=== PATIENT | male | born 1990 | race Caucasian/White ===

== ENCOUNTER 2018-04-13 10:11 | Emergency (ER) | payer BC, SELFPAY ==
[2018-04-13 11:29] LABS: #Basophils 0.1 thou/uL (0.0-0.2); #Eosinphils 0.1 thou/uL (0.0-0.7); #Lymphocytes 2.2 thou/uL (1.20-3.40); #Monocytes 0.5 thou/uL (0.11-0.59); #Neutrophils 6.4 thou/uL (1.40-6.50); %Basophils 0.8 % (0.0-1.0); %Eosinophils 1.5 % (0.0-10.0); %Lymphocytes 23.4 % (21.0-51.0); %Monocytes 5.4 % (0.0-10.0); %Neutrophils 68.9 % (42.0-75.0); Hemoglobin 16.3 g/dL (14.0-18.0); Mean Corpuscular HGB CONC 33.1 g/dL (32.0-36.0); Mean Corpuscular Hemoglobin 27.6 pg (27.0-31.0); Mean Corpuscular Volume 83.3 fL (78.0-98.0); Mean Platelet Volume 6.6 fL (7.4-10.4); Platelet Count 210 thou/uL (130-400); RBC Distribution Width 10.9 % (11.5-14.5); White Blood Cell (WBC) Count 9.3 thou/uL (4.8-10.8)
[2018-04-13 11:39] LABS: ALT (SGPT) 27 U/L (8-55); AST (SGOT) 18 U/L (5-34); Albumin 4.7 g/dL (3.5-5.0); Alkaline Phosphatase 73 U/L (40-150); Anion Gap 14 mmol/L (10-20); BUN (Urea Nitrogen) 17 mg/dL (8.9-20.6); Bilirubin, Total 0.3 mg/dL (0.2-1.2); Calc. Creatinine Clearance 0 mL/min (70-130); Calcium 10.1 mg/dL (7.8-10.44); Carbon Dioxide 21 mmol/L (22-29); Chloride 109 mmol/L (98-107); Estimated GFR-MDRD Greater than 90; Globulin 2.8 g/dL (2.4-3.5); Glucose 95 mg/dL (70-105); Potassium 3.7 mmol/L (3.5-5.1); Protein, Total 7.5 g/dL (6.0-8.3); Sodium 140 mmol/L (136-145)
[2018-04-13 11:41] LABS: CKMB 1.1 ng/mL (0-6.6); Troponin I Less than 0.010 ng/mL (< 0.028)
[2018-04-13] MEDS ORDERED: Meclizine HCl 25 MG TAB ONE (12:00)
[2018-04-13] MEDS ORDERED: Ondansetron HCl/PF 4 MG/2 ML Vial ONE (12:00)
--- NOTE | 2018-04-13 12:20 | CT ---
HEAD CT NONCONTRAST: Date: 04/13/18 CLINICAL HISTORY: Acute onset dizziness. Recent head trauma. FINDINGS: Ventricular system is normal in size. There is no acute intracranial hemorrhage, mass effect, or midl ine shift. Calvarium is intact without pneumocephalus or acute fluid level of the visualized paranasa l sinuses. IMPRESSION: No acute intracranial abnormality. POS: [facility] [place]
== END 2018-04-13 14:10 | disposition home or self-care (01) ==
LOC: SCSER 10:11
DX: R42 Dizziness and giddiness (principal); F17.210 Nicotine dependence, cigarettes, uncomplicated
CPT/HCPCS: 70450; 80053; 82553; 84484; 85025; 93005; 96361; 96374; 99406; J2405